=== PATIENT | male | born 1950 | race Caucasian/White ===

== ENCOUNTER 2024-09-19 20:40 | Emergency (ER) | payer MEDICARE, OTHER ==
[2024-09-19] MEDS: Ketorolac 30 MG/ML SDV IM ONE (21:50)
[2024-09-19] MEDS: Diphtheria,Pertussis(Acell),Tetanus Vaccine 0.5 ML Syringe IM ONE (23:06)
[2024-09-20] MEDS: Ibuprofen Susp 100 MG/5 ML 5 ML UD Cup PO ONE (00:38)
[2024-09-20] MEDS: Acetaminophen Soln 650 MG/20.3 ML UD Cup PO ONE (00:39)
== END 2024-09-20 00:10 | disposition home or self-care (01) ==
LOC: FB.ED 20:40
DX: S22.41XA Multiple fractures of ribs, right side, initial encounter for closed fracture (principal); Z23 Encounter for immunization; E03.9 Hypothyroidism, unspecified; Z88.8 Allergy status to other drugs, medicaments and biological substances; Z87.891 Personal history of nicotine dependence; W01.0XXA Fall on same level from slipping, tripping and stumbling without subsequent striking against object, initial encounter
CPT/HCPCS: 71101-RT; 90471; 90715; 96372; 99283; 99283-25; J1885